=== PATIENT | female | born 1935 | race Two or more races ===

== ENCOUNTER 2024-06-26 15:28 | Outpatient (AMB) | payer MEDICARE, MEDICAID, SELFPAY ==
--- NOTE | 2024-06-26 15:54 | HO.NEPHOV ---
Vital Signs 06/26/24 15:55 Height 5 ft 4 in Weight 126 lb BMI 21.6 BP 114/60 Blood Pressure Location Lt brachial Position Sitting Pulse 86 Pulse Source Pulse Oximeter Pulse Oximetry (%) 97 Oxygen Delivery Method Room Air Intake Visit Reasons: Kidney Disease- Conf Mobile Practice Lead Required: Yes Mobile Practice Lead Services: Mobile Practice Lead Present Mobile Practice Lead Name: Modesta [id number] Accompanied by: Nephew or Niece Allergies No Known Allergies Allergy (Verified 06/26/24 16:01) HPI Comments Details: I had the pleasure of seeing Noy who is 88 years of age who recently have moved to [facility] from [place]. She is known to hypertension for long time. She is on angiotensin receptor maddi as well as thiazides. She has rheumatoid arthritis and has been under the care of her head waiter/waitress. She is currently on hydroxychloroquine. She does not any joint swellings or any systemic complaints. Recently her serum creatinine was 1.38 in [place]. She denies taking regular nonsteroidal anti-inflammatories. She does not have any epistaxis, hematuria, pedal edema, sore throat, orthostatic symptoms, history of coronary artery disease, CVA or PAD. She denies any awareness of proteinuria. She denies any nausea, vomiting, diarrhea. [facility] Medical History (Updated 06/26/24 @ 16:38 by Richie Landrum MD) Chronic kidney disease Surgical History (Updated 06/26/24 @ 16:08 by Piedad Guerrero MA) History of hysterectomy Hx of tonsillectomy Family History (Updated 06/26/24 @ 16:05 by Piedad Guerrero MA) Sister Breast cancer Mother Heart disease Brother Heart disease Social History (Updated 06/26/24 @ 16:04 by Piedad Guerrero MA) Alcohol intake: never Patient Tobacco Use Status: Never used Tobacco Review of Systems Const All systems reviewed & are unremarkable except as noted in HPI and below Physical Exam Vital Signs: Last Vital Signs Pulse 86 06/26/24 15:55 BP 114/60 06/26/24 15:55 Pulse Ox 97 06/26/24 15:55 Oxygen Delivery Method Room Air 06/26/24 15:55 BMI result Body Mass Index 21.6 Const General: comfortable and no acute distress Orientation/consciousness: patient oriented x3 HEENT Head: Yes normocephalic Mouth: Normal oral and palatal mucosa present Eyes EOM: EOMs intact bilaterally Neck Neck: Yes supple Resp Auscultation: clear to auscultation bilaterally Cardio Jugular venous distension: no JVD Rate: regular rate GI Palpation (GI): Soft to palpation Auscultation: normal bowel sounds General: Yes no CVA tenderness Back/Spine/Pelvis Back: no CVA tenderness Skin General skin exam: no rashes or lesions noted Neuro General: patient oriented x3 and moves all extremities Extrem General: Yes no pedal edema Results Reviewed Nephrology Results: No Data to Display Assessment & Plan Assessment & Plan (1) CKD stage 3a, GFR 45-59 ml/min: Code(s): N18.31 - Chronic kidney disease, stage 3a Category: Medical (2) Hypertension: Code(s): I10 - Essential (primary) hypertension Category: Medical Qualifiers: Hypertension type: primary hypertension Qualified Code(s): I10 - Essential (primary) hypertension Plan Noy has longstanding hypertension and rheumatoid arthritis. She denies any coronary artery disease, CVA, CHF or PAD. She does not take nonsteroidals regularly. Her last serum creatinine was 1.38 in [place]. She is not known to have any renal artery stenosis. Her blood pressure usually is at goal on hyper start an and hydrochlorothiazide. She is on a PPI. Her CKD could be multifactorial. I ordered renal imaging and blood work along with urine studies. I did not make any medication changes today but rather discussed with her and family about possible etiologies and further management strategies. Time spent reviewing data from [place], patient encounter, discussions and documentation 49 minutes. Answered all questions. Orders: Orders Electrolytes Today I10 - Essential (primary) hypertension, N18.31 - Chronic kidney disease, stage 3a Uric Acid Today I10 - Essential (primary) hypertension, N18.31 - Chronic kidney disease, stage 3a Immunofixation Pnl, Serum Today I10 - Essential (primary) hypertension, N18.31 - Chronic kidney disease, stage 3a Protein Creatinine Ratio, Ur Today I10 - Essential (primary) hypertension, N18.31 - Chronic kidney disease, stage 3a Hepatitis B Surface Antigen Today I10 - Essential (primary) hypertension, N18.31 - Chronic kidney disease, stage 3a Anti DNA DS Antibody Today I10 - Essential (primary) hypertension, N18.31 - Chronic kidney disease, stage 3a Complement C3 Today I10 - Essential (primary) hypertension, N18.31 - Chronic kidney disease, stage 3a Phospholipase A2 Receptor Pnl Today I10 - Essential (primary) hypertension, N18.31 - Chronic kidney disease, stage 3a US renal doppler Today I10 - Essential (primary) hypertension, N18.31 - Chronic kidney disease, stage 3a Vitamin D 25-OH Total Today I10 - Essential (primary) hypertension, N18.31 - Chronic kidney disease, stage 3a Complete Blood Count Auto Diff Today I10 - Essential (primary) hypertension, N18.31 - Chronic kidney disease, stage 3a Creatinine Today I10 - Essential (primary) hypertension, N18.31 - Chronic kidney disease, stage 3a Blood Urea Nitrogen Today I10 - Essential (primary) hypertension, N18.31 - Chronic kidney disease, stage 3a Calcium Today I10 - Essential (primary) hypertension, N18.31 - Chronic kidney disease, stage 3a Hepatitis B Core Antibody Today I10 - Essential (primary) hypertension, N18.31 - Chronic kidney disease, stage 3a Myeloperoxidase Antibody Today I10 - Essential (primary) hypertension, N18.31 - Chronic kidney disease, stage 3a Proteinase 3 PR3 Antibodies Today I10 - Essential (primary) hypertension, N18.31 - Chronic kidney disease, stage 3a Anti Glomerular Basement Memb Today I10 - Essential (primary) hypertension, N18.31 - Chronic kidney disease, stage 3a Complement C4 Today I10 - Essential (primary) hypertension, N18.31 - Chronic kidney disease, stage 3a US renal BI Today I10 - Essential (primary) hypertension, N18.31 - Chronic kidney disease, stage 3a Parathyroid Hormone Intact Today I10 - Essential (primary) hypertension, N18.31 - Chronic kidney disease, stage 3a Coding Level of Care Code New Pt Level 5 (08931) Diagnoses CKD stage 3a, GFR 45-59 ml/min N18.31 Primary hypertension I10 Hypertension type: primary hypertension
[2024-06-26 15:55] VITALS: BP 114/60; PULSE 86; O2SAT 97; BMI 21.6
== END 2024-06-26 16:34 | disposition home or self-care (01) ==
PROVIDERS: Visit Provider Internal Medicine Nephrology
DX: N18.31 Chronic kidney disease, stage 3a (principal); I10 Essential (primary) hypertension
CPT/HCPCS: 99204

== ENCOUNTER → 2024-06-26 15:28 | Outpatient (BNVA) | payer MEDICARE, MEDICAID, SELFPAY | PROVIDERS: Visit Provider Internal Medicine Nephrology | DX: I12.9 Hypertensive chronic kidney disease with stage 1 through stage 4 chronic kidney disease, or unspecified chronic kidney disease (principal); N18.31 Chronic kidney disease, stage 3a | CPT/HCPCS: 99202 ==

== ENCOUNTER 2024-06-27 08:50 | Outpatient (REF) | payer MEDICARE, MEDICAID, SELFPAY ==
[2024-06-27 09:14] LABS: MANUAL DIFF FLAG NO
[2024-06-27 09:45] LABS: Basophils Absolute Auto 0.1 X10*3/uL (0.0-0.2); Basophils Percent Auto 1.1 % (0-2); Eosinophils Absolute Auto 0.1 X10*3/uL (0.0-0.4); Eosinophils Percent Auto 1.7 % (0-4); Hematocrit 32.5 % (37.0-47.0); Hemoglobin 10.4 g/dl (12.0-16.0); Imm Gran Abs Auto 0.02 X10*3/uL (0.00-0.03); Imm Gran Pct Auto 0.3 % (0.0-0.4); Lymphocytes Absolute Auto 2.5 X10*3/uL (1.2-4.9); Lymphocytes Percent Auto 33.2 % (20-40); Mean Corpuscular Hemoglobin 30.7 pg (27.0-33.0); Mean Corpuscular Volume 95.9 fL (80.0-98.0); Monocytes Absolute Auto 0.9 X10*3/uL (0.1-1.2); Monocytes Percent Auto 12.4 % (2-11); Neutrophils Absolute Auto 3.9 x10*3/uL (2.0-8.3); Neutrophils Percent Auto 51.3 % (45-73); Platelet Count 256 X10*3/uL (160-400); Red Blood Count 3.39 X10*6/uL (4.20-5.50); Red Cell Distribution Width 12.8 % (11.0-16.0); White Blood Count 7.5 X10*3/uL (4.8-10.8)
[2024-06-27 10:23] LABS: Creatinine Urine 45.16 mg/dL; Total Protein Urine Random < 7 mg/dL (<12)
[2024-06-27 10:26] LABS: Anion Gap 11 (12-20); Blood Urea Nitrogen 39 mg/dL (9-16); Carbon Dioxide 26 mmol/L (22-29); Chloride 107 mmol/L (96-108); Estimated Glomerular Filt Rate 39; Potassium 4.3 mmol/L (3.3-5.1); Sodium 140 mmol/L (135-145); Uric Acid 5.5 mg/dL (2.4-5.7)
[2024-06-27 10:38] LABS: HBc Num1 0.15 S/CO (0.00-0.79); HBsAGNum1 0.36 S/CO (0.00-0.99); Hepatitis B Core Antibody Nonreactive (Nonreactive); Hepatitis B Surface Antigen Negative (Negative)
[2024-06-27 10:46] LABS: Parathyroid Hormone Intact 59.2 pg/mL (8.7-77.1)
[2024-06-28 13:09] LABS: Complement C3 133 mg/dL
[2024-06-28 20:13] LABS: Anti DNA DS Antibody 1 IU/mL; Anti Glomerular Basement Memb <1.0 AI; Myeloperoxidase Antibody <1.0 AI; Proteinase 3 PR3 Antibodies <1.0 AI
[2024-06-29 20:53] LABS: IgA 285 mg/dL (70-320); IgG 1293 mg/dL (600-1540); IgM 107 mg/dL (50-300)
[2024-07-04 17:42] LABS: Phospholipase A2 IgG ELISA <4 RU/mL; Phospholipase A2 IgG IFA NEGATIVE (NEGATIVE)
== END 2024-06-27 08:51 | disposition home or self-care (01) ==
LOC: HO.LAB 08:50
PROVIDERS: Visit Provider Internal Medicine Nephrology
DX: I10 Essential (primary) hypertension (principal); N18.31 Chronic kidney disease, stage 3a; I12.9 Hypertensive chronic kidney disease with stage 1 through stage 4 chronic kidney disease, or unspecified chronic kidney disease
CPT/HCPCS: 36415; 80051; 82306; 82310; 82565; 82570; 82784; 83520; 83970; 84156; 84520; 84550; 85025; 86021; 86160; 86225; 86255; 86334; 86704; 87340

== ENCOUNTER 2024-07-31 10:59 | Outpatient (AMB) | payer MEDICARE, MEDICAID, SELFPAY ==
--- NOTE | 2024-07-31 11:18 | HO.NEPHOV_ITS ---
Vital Signs 07/31/24 11:20 Height 5 ft 4 in Weight 127 lb 4 oz BMI 21.8 BP 132/64 Blood Pressure Location Lt brachial Position Sitting Pulse 88 Pulse Source Pulse Oximeter Pulse Oximetry (%) 96 Oxygen Delivery Method Room Air Intake Visit Reasons: 1 mo fu w/ labs and USS-Conf Bowling Alley Floors Installer Required: Yes Bowling Alley Floors Installer Language: Line Supply Services: Bowling Alley Floors Installer Offered & Declined ([facility] Bowling Alley Floors Installer services refused. Pts niece will interpret. ) Bowling Alley Floors Installer Name: Ivette- Niece Accompanied by: Daughter Allergies No Known Allergies Allergy (Verified 07/31/24 11:21) HPI Comments Details: Noy is 88 years of age who recently have moved to [facility] from [place]. She is known to hypertension for long time. She is on angiotensin receptor maddi as well as thiazides. She has rheumatoid arthritis and has been under the care of her range management specialist. She is currently on hydroxychloroquine. She does not any joint swellings or any systemic complaints. Recently her serum creatinine was 1.30. She denies taking regular nonsteroidal anti-inflammatories. She does not have any epistaxis, hematuria, pedal edema, sore throat, orthostatic symptoms, history of coronary artery disease, CVA or PAD. She denies any awareness of proteinuria. She denies any nausea, vomiting, diarrhea but has been having forgetfulness [facility] Medical History (Updated 07/31/24 @ 11:41 by Richie Landrum MD) Chronic kidney disease Surgical History History of hysterectomy Hx of tonsillectomy Family History Sister Breast cancer Mother Heart disease Brother Heart disease Social History Alcohol intake: never Patient Tobacco Use Status: Never used Tobacco Review of Systems Const All systems reviewed & are unremarkable except as noted in HPI and below Physical Exam Vital Signs: Last Vital Signs Pulse 88 07/31/24 11:20 BP 132/64 07/31/24 11:20 Pulse Ox 96 07/31/24 11:20 Oxygen Delivery Method Room Air 07/31/24 11:20 BMI result Body Mass Index 21.8 Const General: comfortable and no acute distress Orientation/consciousness: patient oriented x3 HEENT Head: Yes normocephalic Mouth: Normal oral and palatal mucosa present Eyes EOM: EOMs intact bilaterally Neck Neck: Yes supple Resp Auscultation: clear to auscultation bilaterally Cardio Jugular venous distension: no JVD Rate: regular rate GI Palpation (GI): Soft to palpation Auscultation: normal bowel sounds General: Yes no CVA tenderness Back/Spine/Pelvis Back: no CVA tenderness Skin General skin exam: no rashes or lesions noted Neuro General: patient oriented x3 and moves all extremities Extrem General: Yes no pedal edema Results Reviewed Nephrology Results: Hgb 10.4 g/dl (12.0-16.0) L 06/27/24 WBC 7.5 X10*3/uL (4.8-10.8) 06/27/24 Plt Count 256 X10*3/uL (160-400) 06/27/24 Sodium 140 mmol/L (135-145) 06/27/24 Potassium 4.3 mmol/L (3.3-5.1) 06/27/24 Chloride 107 mmol/L (96-108) 06/27/24 Carbon Dioxide 26 mmol/L (22-29) 06/27/24 BUN 39 mg/dL (9-16) H 06/27/24 Creatinine 1.30 mg/dL (0.5-1.4) 06/27/24 Calcium 10.0 mg/dL (8.4-10.2) 06/27/24 PTH Intact 59.2 pg/mL (8.7-77.1) 06/27/24 Urine Creatinine 45.16 mg/dL 06/27/24 Protein/Creatinin Ratio TNP 06/27/24 Assessment & Plan Assessment & Plan (1) CKD stage 3a, GFR 45-59 ml/min: Code(s): N18.31 - Chronic kidney disease, stage 3a Category: Medical (2) Hypertension: Code(s): I10 - Essential (primary) hypertension Category: Medical Qualifiers: Hypertension type: primary hypertension Qualified Code(s): I10 - Essential (primary) hypertension (3) Memory changes: Code(s): R41.3 - Other amnesia Category: Medical Plan Noy has longstanding hypertension and rheumatoid arthritis. She denies any coronary artery disease, CVA, CHF or PAD. She does not take nonsteroidals regularly. Her last serum creatinine was 1.30. She is not known to have any renal artery stenosis. I discontinued her HCTZ and started her on Amlodipine 2.5 mg daily. She is on a PPI. Her CKD could be multifactorial. Renal imaging could not be done due to insurance issues. I referred her to Neurology for her memory issues. Answered all questions. Orders: Orders Creatinine 4 Months I10 - Essential (primary) hypertension, N18.31 - Chronic kidney disease, stage 3a Electrolytes 4 Months I10 - Essential (primary) hypertension, N18.31 - Chronic kidney disease, stage 3a Blood Urea Nitrogen 4 Months I10 - Essential (primary) hypertension, N18.31 - Chronic kidney disease, stage 3a Referrals Neurology Referral R41.3 - Other amnesia Medications: New irbesartan 150 mg PO DAILY 30 tabs 6RF amlodipine 2.5 mg PO DAILY 30 tabs 6RF Discontinued irbesartan-hydrochlorothiazide 150-12.5 mg Discontinued Reason: Doctor's Order 1 tab PO DAILY 90 tabs 0RF Coding Level of Care Code Est Pt Level 4 (24411) Diagnoses CKD stage 3a, GFR 45-59 ml/min N18.31 Primary hypertension I10 Hypertension type: primary hypertension Memory changes R41.3
[2024-07-31 11:20] VITALS: BP 132/64; PULSE 88; O2SAT 96; BMI 21.8
== END 2024-07-31 11:44 | disposition home or self-care (01) ==
LOC: HO.HKAS 10:59
PROVIDERS: Visit Provider Internal Medicine Nephrology
DX: N18.31 Chronic kidney disease, stage 3a (principal); I10 Essential (primary) hypertension; R41.3 Other amnesia
CPT/HCPCS: 99214

== ENCOUNTER → 2024-07-31 10:59 | Outpatient (BNVA) | payer MEDICARE, MEDICAID, SELFPAY | PROVIDERS: Visit Provider Internal Medicine Nephrology | DX: I10 Essential (primary) hypertension (principal); N18.31 Chronic kidney disease, stage 3a; R41.3 Other amnesia; Z79.899 Other long term (current) drug therapy | CPT/HCPCS: 99212 ==